=== PATIENT | female | born 1975 | race Caucasian/White ===

== ENCOUNTER 2025-05-02 10:35 | Emergency (ER) | payer MEDICARE, MEDICAID, SELFPAY ==
[2025-05-02 10:47] VITALS: BP 132/81; PULSE 103; RESP 18; TEMP 36.7; O2SAT 98
--- NOTE | 2025-05-02 11:04 | ED_ITS ---
HPI - Skin/Abscess/Foreign Bdy General Chief complaint: Skin/Abscess/Foreign Body Stated complaint: Rash Time Seen by Provider: 05/02/25 10:40 Source: patient Mode of arrival: ambulatory Limitations: no limitations History of Present Illness HPI narrative: Dianna is a 49-year-old female patient presenting to the clinic today with complaints red, raised, itchy rash to her arms and to her anterior thighs that started on Friday night. She states she took Trulicity 2 days prior to the rash starting. Trulicity is a new medication for her. Denies any other environmental changes. Denies any difficulty swallowing or trouble breathing. No tongue swelling. Has use Benadryl gel without relief. Related Data Home Medications ?Medication ?Instructions ?Recorded ?Confirmed ?Last Taken ?Type alendronate 70 mg tablet mg PO 05/02/25 Unknown Hist ory amlodipine 2.5 mg tablet mg 05/02/25 Unknown History buspirone 10 mg tablet mg 05/02/25 Unknown History cariprazine 1.5 mg capsule mg 05/02/25 Unknown Histor y (Vraylar) cyclobenzaprine 10 mg tablet mg 05/02/25 Unknown Hist ory divalproex 500 mg tablet,delayed mg PO 05/02/25 Unkno wn History release dulaglutide 0.75 mg/0.5 mL mg subcut 05/02/25 Unknown History subcutaneous pen injector (Trulicity) glipizide 10 mg tablet, extended mg PO 05/02/25 Unkno wn History release 24 hr levothyroxine 50 mcg tablet mcg 05/02/25 Unknown Hist ory metformin 500 mg tablet,extended mg PO 05/02/25 Unkno wn History release 24 hr metoprolol succinate 25 mg mg PO 05/02/25 Unknown His tory tablet,extended release 24 hr pantoprazole 40 mg tablet,delayed mg PO 05/02/25 Unkn own History release rosuvastatin 10 mg tablet mg 05/02/25 Unknown History sertraline 50 mg tablet mg 05/02/25 Unknown History trazodone 50 mg tablet mg 05/02/25 Unknown History Allergies Allergy/AdvReac Type Severity Reaction Status Date / Time Sulfa (Sulfonamide Allergy Unknown Verified 05/02/25 10:48 Antibiotics) Review of Systems Review of Systems: Pertinent positives per HPI. Patient denies any fever, chills,headache, visual changes, dizziness, cough, runny nose, sore throat, shortness of breath, chest pain, palpitations, nausea, vomiting, diarrhea, constipation, abdominal pain, or any urinary issues. PMFSH Comments At the time of my signature, I reviewed and agree with the nursing past medical, surgical, social, and family history. There is no relevant family history pertinent to the patient complaint. Exam Narrative: General: Well-developed, well nourished, in no apparent distress Head: Normocephalic, atraumatic. Cardio: Regular rate and rhythm, s1 and s2 normal, no murmur appreciated. Resp: Clear to auscultation bilaterally, no rhonchi, rales, wheezing or rubs. Integumentary: [place], warm, and dry, red, raised, itchy macular rash to bilateral arms and bilateral anterior thighs Course Course Level of Care: Express Care Visit Vital Signs Vital signs: Vital Signs Temperature 36.7 C 05/02/25 10:47 Pulse Rate 103 H 05/02/25 10:47 Respiratory Rate 18 05/02/25 10:47 Blood Pressure 132/81 05/02/25 10:47 Pulse Oximetry 98 05/02/25 10:47 Oxygen Delivery Room Air 05/02/25 10:47 Temperature 36.7 C 05/02/25 10:47 Pulse Rate 103 H 05/02/25 10:47 Respiratory Rate 18 05/02/25 10:47 Blood Pressure 132/81 05/02/25 10:47 Pulse Oximetry 98 05/02/25 10:47 Oxygen Delivery Room Air 05/02/25 10:47 [facility] MDM Narrative Medical decision making narrative: At the time of visit patient is resting comfortably on the exam table. Patient appears to be nontoxic. Complaints red, raised, itchy rash to her arms and to her anterior thighs that started on Friday night. She states she took Trulicity 2 days prior to the rash starting. Trulicity is a new medication for her. Denies any other environmental changes. Denies any difficulty swallowing or trouble breathing. No tongue swelling. Has use Benadryl gel without relief. On exam patient has red, raised, itchy macular rash to bilateral arms and bilateral anterior thighs Plan: I suspect patient has pruritic rash on her arms and thighs that look like a dermatitis. Prescription for 10 day taper dose of prednisone was sent to pharmacy. Recommend discussing the Trulicity with her doctor to see if this is a medication they want to continue. Supportive measures were discussed with the patient and they voiced understanding discharge instructions and agrees to treatment plan. Return precautions reviewed Differential Diagnosis Differential Diagnosis: Differential diagnostic considerations for skin/abscess/foreign body issues include abscess of skin or subcutaneous tissue, viral exanthem, dermatophytosis, urticaria, herpes zoster, allergic reaction to drug, cellulitis, eczema, insect bites, impetigo, contact dermatitis, vasculitis. 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 Take prednisone as directed Avoid hot showers Avoid scratching as this can cause a secondary infection May take benadryl 25-50mg every 6 hours as needed for itching. Follow up with your PCP in 3-5 days if symptoms persist or sooner if they worsen Go to the Emergency Room if symptoms worsen- fever, rash spreading with treatment, shortness of breath, tongue swelling, drooling, or chest pain Patient Language: Qatari Prescriptions: New prednisone 10 mg tablet 10 mg PO DAILY Qty: 30 0RF Rx Instructions: 60mg po daily on day 1, 40mg po daily on days 2-4, 30mg po daily on days 5-6, 20mg po daily on days 7-8, 10mg po daily on days 9-10 No Action cyclobenzaprine 10 mg tablet trazodone 50 mg tablet glipizide 10 mg tablet extended release 24hr PO alendronate 70 mg tablet PO amlodipine 2.5 mg tablet divalproex 500 mg tablet,delayed release (DR/EC) PO levothyroxine 50 mcg tablet pantoprazole 40 mg tablet,delayed release (DR/EC) PO buspirone 10 mg tablet metoprolol succinate 25 mg tablet extended release 24 hr PO metformin 500 mg tablet extended release 24 hr PO sertraline 50 mg tablet rosuvastatin 10 mg tablet Trulicity 0.75 mg/0.5 mL pen injector SUBCUT Vraylar 1.5 mg capsule Follow-up/Referrals: David,Bruce Davis MD [Primary Care Provider] Time of Disposition: 11:00 Quality NIHSS Nursing Documentation ED NIHSS nursing documentation: reviewed/agree
--- OUTSIDE RECORDS SUMMARY | 2025-05-02 12:16 | XMS_ITS | Clinical Summary ---
Author Organization [facility] [place] Address [address] [place] [address] Care Team Providers Care Civil Division Deputy Sheriff Name Role Phone Bruce Hernandez MD Primary Care Provider [phone] Bruce Hernandez MD Unavailable [phone] Allergies Active Allergy Reactions Criticality Noted Date Comments Adhesive Tape-Silicones Bacitracin Gramicidin D Latex Rash Reaction: Rash, Latex Blisters High 07/20/2024 Matador Swelling Medium 07/20/2024 Neomycin Fkhfmpoz-Edncbxtbia-Slhyabfs n Blisters High 11/10/2024 bacitracin / neomycin / polymyxin B Polymyxin B Pramoxine Sulfa Hives Medium 07/20/[address] (PROTONIX) 40 mg EC tablet Take 1 tablet (40 mg total) by mouth daily Active cetirizine (ZyrTEC) 10 mg tablet Take 1 tablet (10 mg total) by mouth daily Active naproxen (NAPROSYN) 500 mg tablet Take 1 tablet (500 mg total) by mouth daily Active polyethylene glycol (MIRALAX) 17 gram packetIndicati ons:constipati on Take 1 packet (17 g total) by mouth daily Active amLODIPine (NORVASC) 2.5 mg tablet Take 1 tablet (2.5 mg total) by mouth daily 90 tablet 3 5 07/21/19 26 Active rosuvastatin (CRESTOR) 10 mg tablet Take 1 tablet (10 mg total) by mouth daily 90 tablet 3 5 Active metoprolol XL (TOPROL-XL) 25 mg extended release tablet Take 1.5 tablets (37.5 mg total) by mouth daily 1 1/2 tablet by mouth every night at bedtime 135 tablet 3 5 Active Additional Information Patient taking differently:37.5 mg oral Daily,1/2 tablet by mouth every night at bedtime, Reported on 04/25/2025 cyclobenzaprin e (FLEXERIL) 10 mg tablet Take 1 tablet (10 mg total) by mouth 3 (three) times a day as needed for muscle spasms Active divalproex DR (DEPAKOTE) 500 mg EC tablet Take 1 tablet (500 mg total) by mouth nightly Active alendronate (Fosamax) 70 mg tablet Take 1 tablet (70 mg total) by mouth every 7 days Take in the morning with a full glass of water, on an empty stomach, and do not take anything else by mouth or lie down for the next 30 min. Active al & mag hydroxide simethicone-di phenhydramine- lidocaine-nyst atin (MAGIC MOUTHWASH) suspension 1-1-1-1 Swish and swallow every 4 (four) hours as needed Active niacinamide 500 mg tablet Take 1 tablet (500 mg total) by mouth 3 (three) times a day with meals Active ketoconazole (NIZORAL) 2 % cream Apply topically daily 30 g 3 5 Active multivitamin-i priti-folic acid (Centrum Women) 18-400 mg-mcg tablet Take 1 tablet by mouth daily Active sertraline (ZOLOFT) 50 mg tablet Take 1 tablet (50 mg total) by mouth daily 5 Active traZODone (DESYREL) 50 mg tablet Take 2 tablets (100 mg total) by mouth nightly 5 Active naproxen (NAPROSYN) 500 mg tablet Take 1 tablet (500 mg total) by mouth 2 (two) times a day with meals 30 tablet 5 Active traMADoL (ULTRAM) 50 mg tabletIndicati ons:Wound infection,Lace ration of left hand, subsequent encounter Take 1 tablet (50 mg total) by mouth every 6 (six) hours P.r.n. pain not relieved by iflz-ojv-owgfhuj pain medication. Take with food. Collaborating physician Ghulam Carney MD 15 tablet Active Additional Information Patient not taking.Reported on 04/25/2025 busPIRone (BUSPAR) 10 mg tablet Active Vraylar 3 mg capsule capsule Active glipiZIDE XL (GLUCOTROL XL) 10 mg 24 hr tabletIndicati ons:type 2 diabetes mellitus Take 2 tablets (20 mg total) by mouth daily 180 tablet 3 5 03/28/20 Active metFORMIN XR (GLUCOPHAGE XR) 500 mg 24 hr tablet Take 2 tablets (1,000 mg total) by mouth 2 (two) times a day after breakfast and dinner 360 tablet 3 5 03/29/20 Active empagliflozin (Jardiance) 25 mg tablet Take 1 tablet (25 mg total) by mouth daily 90 tablet 3 5 03/29/20 Active blood-glucose sensor (Dexcom G7 Sensor) device 1 device continuously change every 10 days E11.65 9 each 3 Active Additional Information Patient not taking.Reported on 04/25/2025 levothyroxine (SYNTHROID) 50 mcg tablet Take 1 tablet (50 mcg total) by mouth pediatric oncologist before breakfast 90 tablet 3 Active dulaglutide (TRULICITY) 0.75 mg/0.5 mL pen injector Inject 0.5 mL (0.75 mg total) under the skin every 7 days 2 mL 6 Active Active Problems Problem Noted Date Diagnosed Date Bipolar 1 disorder, depressed 01/04/2025 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 01/04/2025 White without pressure finding of peripheral ret asha 01/04/2025 Wound infection 12/19/2024 Laceration of left hand, subsequent encounter 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 12/13/2024 Pemphigoid 11/10/2024 Cyst of pancreas 10/26/2024 Fibromyalgia 10/26/2024 Raynaud's disease 10/26/2024 Bipolar disorder 08/26/2024 Generalized anxiety disorder 08/26/2024 Insomnia 08/26/2024 Other specified hypothyroidism 07/20/2024 Type 2 diabetes mellitus, wi thout long-term current use of insulin 07/20/2024 Primary hypertension 07/20/2024 Other hyperlipidemia 07/20/2024 Encounters Date Type Department Care Team Description 04/29/2025 10:27 AM HOME ENERGY CONSULTANT - 04/29/2025 11:59 PM HOME ENERGY CONSULTANT Hospital Encounter [facility] Nutrition and Diabetic Education [address] [facility] [id number] [place] [address] Angela Delgado, RN Arrived Discharge Disposition: Discharge to home or self care 04/28/2025 8:15 AM HOME ENERGY CONSULTANT Therapy [facility] Occupational Therapy [address] [place] [id number] Prerna Kennedy, OT Unspecified injury of left wrist, hand and finger(s), sequela (Primary Dx) 04/25/2025 10:30 AM HOME ENERGY CONSULTANT Office Visit [facility] at [address] [phone] Adrianna Hedrick, DO Type 2 diabetes mellitus with hyperglycemia, without long-term current use of insulin (HCC) (Primary Dx); Acquired hypothyroidism 04/19/2025 8:00 AM HOME ENERGY CONSULTANT Therapy [facility] [address] [place] [phone] Prerna Kennedy, OT Unspecified injury of left wrist, hand and finger(s), sequela 04/19/2025 Plan of Care Documentation [facility] Occupational [facility] [address] [place] [id number] 03/25/2025 11:57 AM HOME ENERGY CONSULTANT - 03/25/2025 11:59 PM HOME ENERGY CONSULTANT Hospital Encounter [facility] [address] [place] [address] Other dorsalgia; Other chronic pain Discharge Disposition: Discharge to home or self care 03/15/2025 Results Follow-Up [address] [address] Gia Narvaez, DO Diagnostic Mammogram Right W Manjinder 03/11/2025 9:30 AM CDT Ancillary Procedure [facility] [address] [place] [address] Breast asymmetry 03/11/2025 9:00 AM CDT Ancillary Procedure [facility] [address] [place] [address] Breast asymmetry from Last 3 Months Surgical History Surgery Date Site/Laterality Comments BREAST BIOPSY PORTACATH PLACEMENT CHOLECYSTECTOMY TYMPANOSTOMY TUBE PLACEMENT WISDOM TOOTH EXTRACTION Medical History Medical History Date Comments Diabetes mellitus Diabetes Hx Other Medical Headache, migra ine Hx Other Medical bipolar disorde r Hyperlipidemia Hyperlipidemia Hypertension Hypertension Primary fibromyalgia syndrome fi bromyalgia Type 2 diabetes mellitus Fibromyalgia Hypothyroid h Anxiety Bipolar disorder Heart murmur Tachycardia GERD (gastroesophageal reflux disease) Irritable bowel syndrome Stroke (HCC) TIA left arm wea kness Depression Raynaud disease Family History Medical History Relation Name Comments Coronary artery disease Maternal Grandmother Coronary artery disease; Diabetes type I Maternal Grandmother Diab etes -Type I; Stroke Maternal Grandmother Stroke; Uterine cancer Maternal Grandmother Breast cancer Maternal Great-Grandmother Breast cancer Mother Diabetes type II Mother Diabetes -T ype II; Ovarian cancer Mother Uterine cancer Mother Uterine cancer Mother's Sister X 3 Relation Name Status Comments Father Maternal Grandmother Maternal Great-Grandmother Mother Mother's Sister Social History Tobacco Use Types Packs/Day Years Used Date Smoking Tobacco: Former Cigarettes 0.5 1 1 - 1995 Tobacco Cessation:Counseling Given: Not Answered Alcohol Use Standard Drinks/Week Comments No 0 (1 standard drink = 0.6 oz pur e alcohol) AUDIT-C Answer Date Recorded Q1: How often do you have a drink containing alc ohol? 2-4 times a month 11/16/2024 Q2: How many drinks containi ng alcohol do you have on a typical day when you are drinking? 3 or 4 11/16/2024 Q3: How often do you have si x or more drinks on one occasion? Never 11/16/2024 Personal Safety Answer Date Recorded Have you ever been in or are you currently in a harmful physical or emotional relationship or is someone making you feel afraid or unsafe? Denies 12/19/2024 Comments No Sex and Gender Information Value Date Recorded Sex Assigned at Not on file Legal Sex Female 1:03 AM HOME ENERGY CONSULTANT Gender Identity Not on file Sexual Orientation Not on file Obstetrics History Para Term AB IAB SAB Ectopic Multiple Livin g Live Births 1 1 0 1 0 0 0 0 Date Outcome GA Total Labor Labor/2nd/3rd Weight Sex Type Anes PTL Radha A1 A5 Name Clin 1995 34w 0d 3.062 kg (6 lb 12 oz) F Vaginal Last Filed Vital Signs Vital Sign Reading Time Taken Comments Blood Pressure 128/74 04/25/2025 10:26 AM HOME ENERGY CONSULTANT Pulse 96 04/25/2025 10:26 AM HOME ENERGY CONSULTANT Temperature 36.2 C (97.2 F) 12/19/2024 3:35 PM CDT Respiratory Rate 16 12/19/2024 8:38 PM CDT Oxygen Saturation 94% 12/19/2024 8:38 PM CDT Inhaled Oxygen Concentration - - Weight 80 kg (176 lb 4.8 oz) 04/25/2025 10:26 AM HOME ENERGY CONSULTANT Height 149.9 cm (4' 11) 04/25/2025 10:26 AM HOME ENERGY CONSULTANT Body Mass Index 35.61 04/25/2025 10:26 AM HOME ENERGY CONSULTANT Plan of Treatment Health Maintenance Due Date Last Done Comments Colon Cancer Screening-Colonoscopy 1974 Depression Screening 1974 Hepatitis C Screening 1974 DTaP/Tdap/Td Vaccine (1 - Tdap) 1985 Hepatitis B Screening 1992 Pneumococcal vaccine <65 (1 of 2 - PCV) 1993 Zoster Vaccine (1 of 2) 2024 Influenza Vaccine (#1) 2025 Foot Exam 07/20/2025 07/20/2024 Lipid Panel 07/20/2025 07/20/2024 Albumin Creatinine Ratio, Urine 07/21/2025 Breast Cancer Screening-Mammogram 08/26/2025 025 Cervical Cancer Screening 08/26/2025 08/26/2024, Regular Well Visit/Exam 18-64 08/26/2025 08/26/2024 Hemoglobin A1C 10/24/2025 04/25/2025, 01/10, 10/21/2024, Additional history exists eGFR 12/19/2025 12/19/2024, 01/26/2024 Dilated Eye Exam 09/08/2026 09/08/2024, 07/20/2024 Procedures Procedure Name Priority Date/Time Associated Diagnosis Comments POCT HEMOGLOBIN A1C Routine 04/25/2025 10:41 AM HOME ENERGY CONSULTANT Type 2 diabetes mellitus with hyperglycemia, without long-term current use of insulin (HCC) XR SPINE CERVICAL 2 OR 3 VIEWS Schedule Routine, Read Routine (OP Routine) 03/25/2025 12:11 PM HOME ENERGY CONSULTANT Other dorsalgia XR SPINE THORACIC 3 VIEWS Schedule Routine, Read Routine (OP Routine) 03/25/2025 12:11 PM HOME ENERGY CONSULTANT Other dorsalgia Other chronic pain US BREAST RIGHT LIMITED Schedule Routine, Read Routine (OP Routine) 03/11/2025 10:04 AM CDT Breast asymmetry DIAGNOSTIC MAMMOGRAM RIGHT W MANJINDER Schedule Routine, Read Routine (OP Routine) 03/11/2025 9:06 AM CDT Breast asymmetry EGFR STAT 12/19/2024 6:33 PM CDT DIABETIC EYE EXAM Routine 09/08/2024 HIGH RISK HPV DNA DETECTION WITH GENOTYPING Routine 08/26/2024 10:42 AM CDT Screening for malignant neoplasm of cervix SCREENING MAMMOGRAM BILATERAL W MANJINDER Schedule Routine, Read Routine (OP Routine) 08/26/2024 10:27 AM CDT Screening mammogram, encounter for ALBUMIN CREATININE RATIO, URINE Routine 07/21/2024 12:00 AM CDT Type 2 diabetes mellitus with hyperglycemia, without long-term current use of insulin (HCC) LIPID PANEL Routine 07/20/2024 11:07 AM CDT Type 2 diabetes mellitus with hyperglycemia, without long-term current use of insulin (HCC) from Last 3 Months or Most Recently Relevant to Health Maintenance Results * (ABNORMAL) POCT hemoglobin A1c (04/25/2025 10:41 AM HOME ENERGY CONSULTANT) Hemoglobin A1C, POC 8.5(A) 4.0 - 5.6 % Blood 04/25/2025 10:4 1 AM HOME ENERGY CONSULTANT Adrianna Hedrick DO POINT OF CARE TEST ORDERABL ES Edited Result - Final * XR Spine Thoracic 3 Vw (03/25/2025 12:11 PM HOME ENERGY CONSULTANT) Anatomical Region Laterality Modality Spine N/A Computed Radiogr aphy 03/25/2025 6:54 PM HOME ENERGY CONSULTANT Impressions 03/25/2025 6:54 PM HOME ENERGY CONSULTANT 1. Minimal C5-C6 degenerative disc disease with mild bilateral cervical facet osteoarthritis. 2. Thoracic scoliosis with mild multilevel thoracic degenerative disc disease. Electronically signed by: Javier Knapp M.D. Narrative 03/25/2025 6:54 PM HOME ENERGY CONSULTANT EXAMINATION: XR SPINE THORACIC 3 VIEWS, XR SPINE CERVICAL 2 OR 3 VIEWS HISTORY: M54.89, G89.29. Cervical and thoracic spondylosis. FINDINGS: 2 views cervical spine and 3 views thoracic spine submitted without comparison. Cervical spine: No acute fracture. No prevertebral soft tissue swelling. Mild anterolisthesis of C4-C6. Minimal C4-C6 degenerative disc disease. Mild bilateral cervical facet osteoarthritis. Thoracic spine: Levoscoliosis of the upper thoracic spine. Mild dextroscoliosis of the inferior thoracic spine and rotary levoscoliosis of the thoracolumbar junction. No acute fracture. Mild multilevel thoracic degenerative disc disease. Procedure Note Javier Knapp MD - 03/25/2025 EXAMINATION: XR SPINE THORACIC 3 VIEWS, XR SPINE CERVICAL 2 OR 3 VIEWS HISTORY: M54.89, G89.29. Cervical and thoracic spondylosis. FINDINGS: 2 views cervical spine and 3 views thoracic spine submitted without comparison. Cervical spine: No acute fracture. No prevertebral soft tissue swelling. Mild anterolisthesis of C4-C6. Minimal C4-C6 degenerative disc disease. Mild bilateral cervical facet osteoarthritis. Thoracic spine: Levoscoliosis of the upper thoracic spine. Mild dextroscoliosis of the inferior thoracic spine and rotary levoscoliosis of the thoracolumbar junction. No acute fracture. Mild multilevel thoracic degenerative disc disease. IMPRESSION: 1. Minimal C5-C6 degenerative disc disease with mild bilateral cervical facet osteoarthritis. 2. Thoracic scoliosis with mild multilevel thoracic degenerative disc disease. Electronically signed by: Javier Knapp M.D. us Bruce Hernandez MD IM XR PROCEDURES Final Resul t * XR Spine Cervical 2 or 3 Views (03/25/2025 12:11 PM HOME ENERGY CONSULTANT) Anatomical Region Laterality Modality Spine N/A Computed Radiogr aphy 03/25/2025 6:54 PM HOME ENERGY CONSULTANT Impressions 03/25/2025 6:54 PM HOME ENERGY CONSULTANT 1. Minimal C5-C6 degenerative disc disease with mild bilateral cervical facet osteoarthritis. 2. Thoracic scoliosis with mild multilevel thoracic degenerative disc disease. Electronically signed by: Javier Knapp M.D. Narrative 03/25/2025 6:54 PM HOME ENERGY CONSULTANT EXAMINATION: XR SPINE THORACIC 3 VIEWS, XR SPINE CERVICAL 2 OR 3 VIEWS HISTORY: M54.89, G89.29. Cervical and thoracic spondylosis. FINDINGS: 2 views cervical spine and 3 views thoracic spine submitted without comparison. Cervical spine: No acute fracture. No prevertebral soft tissue swelling. Mild anterolisthesis of C4-C6. Minimal C4-C6 degenerative disc disease. Mild bilateral cervical facet osteoarthritis. Thoracic spine: Levoscoliosis of the upper thoracic spine. Mild dextroscoliosis of the inferior thoracic spine and rotary levoscoliosis of the thoracolumbar junction. No acute fracture. Mild multilevel thoracic degenerative disc disease. Procedure Note Javier Knapp MD - 03/25/2025 EXAMINATION: XR SPINE THORACIC 3 VIEWS, XR SPINE CERVICAL 2 OR 3 VIEWS HISTORY: M54.89, G89.29. Cervical and thoracic spondylosis. FINDINGS: 2 views cervical spine and 3 views thoracic spine submitted without comparison. Cervical spine: No acute fracture. No prevertebral soft tissue swelling. Mild anterolisthesis of C4-C6. Minimal C4-C6 degenerative disc disease. Mild bilateral cervical facet osteoarthritis. Thoracic spine: Levoscoliosis of the upper thoracic spine. Mild dextroscoliosis of the inferior thoracic spine and rotary levoscoliosis of the thoracolumbar junction. No acute fracture. Mild multilevel thoracic degenerative disc disease. IMPRESSION: 1. Minimal C5-C6 degenerative disc disease with mild bilateral cervical facet osteoarthritis. 2. Thoracic scoliosis with mild multilevel thoracic degenerative disc disease. Electronically signed by: Javier Knapp M.D. Bruce Hernandez MD IMG XR PROCEDURES Final Resul t * US Breast Right Limited (03/11/2025 10:04 AM CDT) Anatomical Region Laterality Modality Breast Right Ultrasound 03/11/2025 10:5 6 AM CDT Impressions 03/11/2025 10:56 AM CDT Findings in the right breast at the 10 o'clock position are probably benign. OVERALL FINAL ASSESSMENT: BI-RADS Category 3: Probably Benign. RECOMMENDATION: The patient should return in 6 months time, at the time of her bilateral annual study for diagnostic imaging and follow-up right breast ultrasound. Electronically signed by: Bia Newman M.D. Narrative 03/11/2025 10:56 AM CDT EXAMINATION: RIGHT UNILATERAL DIGITAL DIAGNOSTIC MAMMOGRAM AND DIGITAL BREAST TOMOSYNTHESIS; RIGHT BREAST SONOGRAM HISTORY: Follow-up right breast focal asymmetry COMPARISON: 09/06/2024, 08/26/2024, 08/15/2023, 08/13/2022 TECHNIQUE: Full field digital mammographic views of the RIGHT breast were performed, including computer aided detection (CAD) and digital breast tomosynthesis (DBT). Directed ultrasound evaluation of the RIGHT breast was performed. BREAST PARENCHYMAL COMPOSITION: There are scattered areas of fibroglandular density. MAMMOGRAM FINDINGS: Again identified in the right breast near the biopsy marker clip is an area of focal asymmetry. This does not appear changed when compared with the previous study. There is no suspicious associated microcalcification. SONOGRAM FINDINGS: Targeted right breast ultrasound was performed in the region of interest. The biopsy marker clip is identifiable within area of hypoechogenicity adjacent to it. This is documented best on cine clip images. This is at the 10 o'clock position 4 to 5 cm from the nipple. The hypoechoic area measures approximately 11 mm x 7 mm x 5 mm. Within cine clip images are directly compared, there has not been significant interval change. This remains probably benign. Gia Narvaez DO IMG MAMMO PROCEDURES Fi nal Result * Diagnostic Mammogram Right W Manjinder (03/11/2025 9:06 AM CDT) Anatomical Region Laterality Modality Breast Right Mammography 03/11/2025 10:5 6 AM CDT Impressions 03/11/2025 10:56 AM CDT Findings in the right breast at the 10 o'clock position are probably benign. OVERALL FINAL ASSESSMENT: BI-RADS Category 3: Probably Benign. RECOMMENDATION: The patient should return in 6 months time, at the time of her bilateral annual study for diagnostic imaging and follow-up right breast ultrasound. Electronically signed by: Bia Newman M.D. Narrative 03/11/2025 10:56 AM CDT EXAMINATION: RIGHT UNILATERAL DIGITAL DIAGNOSTIC MAMMOGRAM AND DIGITAL BREAST TOMOSYNTHESIS; RIGHT BREAST SONOGRAM HISTORY: Follow-up right breast focal asymmetry COMPARISON: 09/06/2024, 08/26/2024, 08/15/2023, 08/13/2022 TECHNIQUE: Full field digital mammographic views of the RIGHT breast were performed, including computer aided detection (CAD) and digital breast tomosynthesis (DBT). Directed ultrasound evaluation of the RIGHT breast was performed. BREAST PARENCHYMAL COMPOSITION: There are scattered areas of fibroglandular density. MAMMOGRAM FINDINGS: Again identified in the right breast near the biopsy marker clip is an area of focal asymmetry. This does not appear changed when compared with the previous study. There is no suspicious associated microcalcification. SONOGRAM FINDINGS: Targeted right breast ultrasound was performed in the region of interest. The biopsy marker clip is identifiable within area of hypoechogenicity adjacent to it. This is documented best on cine clip images. This is at the 10 o'clock position 4 to 5 cm from the nipple. The hypoechoic area measures approximately 11 mm x 7 mm x 5 mm. Within cine clip images are directly compared, there has not been significant interval change. This remains probably benign. us Gia Narvaez DO IMG MAMMO PROCEDURES Fi nal Result * eGFR (12/19/2024 6:33 PM CDT) eGFR >90 >=60 mL/min/1. 73 m2 Comment: Interpretive Data Reference Interval Normal >/= 90 mL/min/1.73m2 Mildly decreased* 60 - 89 mL/min/1.73m2 Mildly to moderately decreased 45 - 59 mL/min/1.73m2 Moderately to severely decreased 30 - 44 mL/min/1.73m2 Severely decreased 15 - 29 mL/min/1.73m2 Kidney Failure < 15 mL/min/1.73m2 *Relative to young adult level Estimated glomerular filtration rate is determined by the 2020 CKD-EPI equation recommended by the National Kidney Foundation (A Unifying Approach to GFR Estimation: Recommendations of the NKF-ASK Task Force on Reassessing the Inclusion of Race in Diagnosing Kidney Disease, JASN 2020). The CKD-EPI equation should not be used for patients with unstable renal function and has not been validated in children and those over 70. Current interpretive data was last reviewed 2021. Blood 12/19/2024 6:33 PM CDT 12/19/2024 6:40 PM CDT Taye DUNN LAB BLOOD ORDERABLES Final R esult [facility] [address] [facility] Department [place] [address] * (ABNORMAL) Diabetic Eye Exam (09/08/2024) 09/08/2024 Historical Provider HEALTH MAINTENANCE Final Result * High Risk HPV DNA Detection with Genotyping (Molecular component) (08/26/2024 10:42 AM CDT) HPV HR 16 Not Detected Not Detected [facility] Comment:Testing performed by : [facility], [address] [place] [address] HPV HR 18 Not Detected Not Detected [facility] Comment:Testing performed by : [facility], [address] [facility], [place]., [address] HPV HR Non 16/18 Not Detected Not Detected [facility] Comment: Interpretive Data Nucleic acid amplification for detection of high-risk Human Papilloma virus (HPV) is performed by the Mendy Nick 6800 HPV test. This assay specifically detects HPV-16 and HPV-18 genotypes. The following HPV genotypes are detected as high-risk HPV: HPV-31, 33, 35, ,39, 45, 51, 52, 56, 58, 59, 66, and 68. This assay has been approved by the [place] Food and Drug Administration for detection of HPV in cervical specimens collected by a physician using an endocervical brush/spatula or cervical broom and placed in the ThinPrep Pap Test PreservCyt collection containers. The performance characteristics of this test have been verified by the [facility] Molecular Infectious Disease laboratory. Correlate with separately reported cytology results, as applicable. Interpretive data last revised 22 Testing performed by: [facility], [address] [place]., [address] Endocervical 08/26/2024 10:4 2 AM CDT 08/27/2024 12:36 PM CDT [facility] 08/27/2024 10:58 PM CDT Clinical history and diagnosis->Liquid-based PAP test with high risk HPV test- Z12.4 Number of vials->1 Testing type->Screening Last menstrual period (date if known)->N/A Menstrual status->Postmenopausal Gia Narvaez DO LAB BODY FLUIDS AND STO OLS ORDERABLES Final Result [facility] [address] Department [place] [address] [facility] * (ABNORMAL) Screening Mammogram Bilateral W Manjinder (08/26/2024 10:27 AM CDT) Anatomical Region Laterality Modality Breast Bilateral Mammography 08/30/2024 3:41 PM CDT Addenda Addendum by Whit Cruz MD on 08/30/2024 3:41 PM CDT The patient's prior examinations performed on 08/15/2023, 08/13/2022, 10/02/2020, 03/30/2020 and 09/21/2019 have become available for comparison. The focal asymmetry near the biopsy clip in the upper outer right breast posteriorly was present previously but appears more prominent. The asymmetry in the central right breast on the MLO view, possibly located laterally was not seen previously. Additional evaluation of the right breast is still recommended. Electronically signed by: Whit Cruz M.D. Impressions 08/26/2024 1:12 PM CDT Indeterminate bilateral breast asymmetries. Further evaluation with bilateral diagnostic mammography and possible diagnostic breast ultrasound is recommended. The patient has been or will be contacted. OVERALL BI-RADS FINAL ASSESSMENT: 0 - Incomplete: Needs Additional Imaging Evaluation RECOMMENDATIONS: Recommend bilateral diagnostic mammogram with possible ultrasound. Narrative 08/26/2024 1:12 PM CDT EXAMINATION: Screening Mammogram Bilateral W Manjinder: 08/26/2024 COMPARISON: TECHNIQUE: Mammography was performed with 2D and digital breast tomosynthesis (DBT) images. CAD was utilized. BREAST PARENCHYMAL COMPOSITION: There are scattered areas of fibroglandular density. FINDINGS: A metallic device overlies the left pectoralis muscle. There is a postbiopsy clip in the upper outer right breast posteriorly. Adjacent to the clip is a focal asymmetry with possible associated distortion. There is also an asymmetry in the central right breast seen on the MLO view, middle depth which may be in the lateral breast. No other suspicious masses, calcifications or other findings are seen in either breast. Gia Narvaez DO IMG MAMMO PROCEDURES Ed ited Result - Final * Albumin Creatinine Ratio, Urine (07/21/2024 12:00 AM CDT) Albumin Ur <12.0 mg/L Comment: Interpretive Data No reference range established. Current interpretive data was last revised 2018. Creatinine Ur 64.2 mg/dL [facility] Comment: Interpretive Data No reference range established. Current interpretive data was last revised 2018. Albumin Creatinine Ratio, Ur <19 1 - 29 mg/g [facility] Urine 07/21/2024 07/21/2024 12: 34 PM CDT Adrianna Hedrick DO LAB URINE ORDERABLES Final Result [facility] [id number] [facility] Department [place] [address] * (ABNORMAL) Lipid panel (07/20/2024 11:07 AM CDT) Cholesterol 147 30 - 199 mg/dL Comment: Interpretive Data Ages < or = 19 years Acceptable: <170 mg/dL Borderline high: 170-199 mg/dL High: >or= 200 mg/dL Ages > or = 20 years Desirable: <200 mg/dL Borderline high: 200-239 mg/dL High: >or= 240 mg/dL Literature References: 1. Expert Panel on Integrated Guidelines for Cardiovascular Health and Risk Reduction in Children and Adolescents. Pediatrics 2011;128:S213 2. NCEP Expert Panel. Circulation 2004;110:227 Current Interpretive Data was last revised on 2017. Triglycerides 181(H) <=149 mg/dL [facility] Comment: Interpretive Data Ages < or = 9 years Acceptable: <75 mg/dL Borderline high: 75-99 mg/dL High: >or= 100 mg/dL Ages 10 to 20 years Acceptable: <90 mg/dL Borderline high: 90-129 mg/dL High: >or= 130 mg/dL Ages > or = 20 years Desirable: <150 mg/dL Borderline high: 150-199 mg/dL High: 200-499 mg/dL Very high: >or= 499 mg/dL Literature References: 1. Expert Panel on Integrated Guidelines for Cardiovascular Health and Risk Reduction in Children and Adolescents. Pediatrics 2011;128:S213 2. NCEP Expert Panel. Circulation 2004;110:227 Current Interpretive Data was last revised on 2017. HDL 44 >=40 mg/dL [facility] Comment: Interpretive Data Ages < or = 19 years Acceptable: >45 mg/dL Borderline low: 40-45 mg/dL Low: <40 mg/dL Ages > or = 20 years Desirable: >or= 60 mg/dL Low: <40 mg/dL Literature References: 1. Expert Panel on Integrated Guidelines for Cardiovascular Health and Risk Reduction in Children and Adolescents. Pediatrics 2011;128:S213 2. NCEP Expert Panel. Circulation 2004;110:227 Current Interpretive Data was last revised on 2017. LDL, calculated 72 <=129 mg/dL [facility] Comment: Interpretive Data Ages < or = 19 years Acceptable: <110 mg/dL Borderline high: 110-129 mg/dL High: >or= 130 mg/dL Ages > or = 20 years Optimal: <100 mg/dL Near optimal: 100-129 mg/dL Borderline high: 130-159 mg/dL High: >160 mg/dL Calculated using the Marlo LDL-C estimating equation. This equation was implemented on 2023. Prior to this date LDL-C was estimated using the Friedewald equation. Literature References: 1. Expert Panel on Integrated Guidelines for Cardiovascular Health and Risk Reduction in Children and Adolescents. Pediatrics 2011;128:S213 2. NCEP Expert Panel. Circulation 2004;110:227 3. Marlo Tolentino et al. GUIDO Cardiol. 2020 September 09;5(5):540-548. doi: [email or web address] Current Interpretive Data was last revised on 2023. Non-HDL Cholesterol 103 mg/dL [facility] Comment: Interpretive Data Ages < or = 19 years Acceptable: <120 mg/dL Borderline high: 120-144 mg/dL High: >145 mg/dL Ages > or = 20 years When triglycerides are >200 mg/dL, Non-HDL cholesterol is a secondary target of therapy with treatment goals that are 30 mg/dL greater than the LDL cholesterol target. Literature References: 1. Expert Panel on Integrated Guidelines for Cardiovascular Health and Risk Reduction in Children and Adolescents. Pediatrics 2011;128:S213 2. NCEP Expert Panel. Circulation 2004;110:227 Current Interpretive Data was last revised on 2017. Chol/HDL ratio 3 [facility] Blood 07/20/2024 11:0 7 AM CDT 07/20/2024 9:16 PM CDT Narrative [facility] - 07/20/2024 10:15 PM CDT These lab test should be done fasting. This means do not eat or drink for at least 12 hours prior to getting your blood drawn. 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
--- OUTSIDE RECORDS SUMMARY | 2025-05-02 12:23 | XMS_ITS | Continuity of Care Document ---
Author Organization Jlu[facility]COSTA [address] IM Address [address] [facility] [address] [place] [address] Assessment Encounter Date Assessment Date Assessment LastModified by Organization Details LastModified Time 03/24/2025 03/24/2025 Decrease metoprolol to 1/2 tablet po HS due to decreased BP. Pt sees an eye doctor. Not available 03/25/2025 13:46:57 Plan of Treatment Reminders Order Date Submit Date Provider Last Modified By Organization Details Last Modified Time Details Appointments None recorded. Lab None recorded. Referral None recorded. Procedures None recorded. Surgeries None recorded. Imaging XR, thoracic spine, 3 view 2024 025 ROHIT Schmitz Scheduling, [address] [place], [address], 19:57:53 XR, cervical spine, 2 or 3 view 2024 025 [email or web address] Jluis Schmitz Scheduling, [address] [facility] [place], [address], 11:54:30 Medication Orders alendrona te 70 mg tablet 2024 025 [facility] #[id number], [address], [place], [place], [id number], 12:23:17 rosuvasta tin 10 mg tablet 2024 025 [facility][id number], [address], [place], [place], [id number], 12:26:14 metoprolo l succinate ER 25 mg tablet,ex tended release 24 hr 2024 025 [facility] #[id number], [address], [place], [place], [phone], 12:23:17 Patient TargetsNo targets recorded. Patient Instructions Encounter Date Encounter Id Patient Instructions Last Modified By Organization Details Last Modified Time 03/24/2025 [id number] physical therapy* ATHENAFAX Not availab le 04/01/2025 11:55:56 mammogram: about this test [email or web address] Not available 03/24/2025 12:29:05 A healthy lifestyle: care instructions [email or web address] Not available 03/24/2025 12:20:16 high blood pressure: care instructions [email or web address] Not available 03/24/2025 12:23:11 learning about high blood pressure [email or web address] Not available 03/24/2025 12:23:11 Reason for Referral None Reported. Results Created Date Observation Date Name Description Value Unit Range Abnormal Flag Note LastModifiedBy Organization Detail LastModifiedTime 03/11/2003/11/2025 US, breas t, unila teral No observ ation record ed. [facility] [address] [place] [address] Dr Jerrica Wray, [address], [place], [address], 03/11/2025 12:58:04 03/11/2003/11/2025 MAMMO , diagn ostic , unila teral No observ ation record ed. [facility] [address] [facility] [address] Jerrica Wray, [address], [place], [address], 03/11/2025 12:58:46 03/25/2003/25/2025 XR, thora cic spine , 3 view No observ ation record ed. [address] [place], [address], 04/04/2025 11:22:45 03/25/2003/25/2025 XR, thora cic spine , 3 view No observ ation record ed. [address] [place], [address], 04/04/2025 11:22:46 Result Notes None recorded. 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 Procedures Surgical History Date Name Laterality Status Provider Name and Address Organization Details Recorded Time 12/13/19 25 Other completed BETY Sung SIFrancesco 03/24/2025 11:34:45 11/23/19 25 removal of device completed BETY Sung 03/24/2025 11:33:52 09/10/19 19 core needle biopsy of breast completed BETY Sung 08/13/2024 11:42:42 Cholecystectomy completed BETY Sung 08/13/2024 11:40:43 cryosurgery of lesion of cervix completed BETY Sung 08/13/2024 11:41:08 extraction of wisdom tooth completed BETY Sung 08/13/2024 11:41:20 cataract surgery completed BETY Sung 08/13/2024 11:41:31 colonoscopy completed BETY Sung 08/13/2024 11:41:54 implantation of venous access port completed BETY Sung 08/13/2024 11:42:56 Imaging Results None recorded. Procedure Notes None recorded. Medical Equipment None Reported. Allergies Allergen ID Allergen Name Allergen Category Reaction Reaction Severity Criticality Documentation Date Start Date Code Code System Note Provider Name and Address Organization Details Recorded Time 301364 Substance with sulfonami de structure and antibacte rial mechanism of action (substanc e) medicatio n Not available Not available Not available 09/21/2024 38276 8003 SNOMED BETY Sung, [facility] 11:41:57 124766 latex environme nt,medica tion Not available Not available Not available 09/21/2024 19620 91 RxNorm BETY Sung, [facility] 11:42:02 013007 lithium Not available Not available Not available Not available 09/21/2024 6448 RxNorm BETY Sung, [facility] 11:42:06 389411 bacitraci n / neomycin / polymyxin B medicatio n Not available Not available Not available 09/21/2024 87516 9 RxNorm cream or ointm ent BETY Sung, [facility] 11:42:45 447885 polymyxin B medicatio n Not available Not available Not available 03/24/20252024 8536 RxNorm Not Available [employer] - prod 11:20:21 260792 neomycin sulfate medicatio n Not available Not available Not available 03/24/20252024 7300 RxNorm Not Available [employer] - prod 11:20:21 828198 bacitraci n zinc medicatio n Not available Not available Not available 03/24/20252024 90072 RxNorm Not Available [employer] [facility] - [facility] 11:20:21 371949 bacitraci n medicatio n Not available Not available Not available 03/24/20252024 1291 RxNorm Not Available [employer] - [facility] 5 11:20:21 328246 gramicidi n medicatio n Not available Not available Not available 03/24/2025 5011 RxNorm Not Available [employer] - [employer] - prod 5 11:20:24 254647 neomycin medicatio n Not available Not available Not available 03/24/2025 7299 RxNorm Not Available [employer] - [employer] - prod 5 11:20:24 341553 bacitraci n / neomycin / polymyxin B medicatio n Not available Not available [facility] 03/24/20252024 68227 9 RxNorm bacit racin / neomy diana / polym yxin B unrec ogniz ed react ion (text : Theodore ers, code: [id number]) (from [facility]) Not Available [facility] [employer] - prod 5 11:20:24 832236 pramoxine medicatio n Not available Not available Not available 03/24/2025 93221 RxNorm Not Available [employer] - External [facility] - [facility] 5 11:20:24 945672 sulfanila mide medicatio n Not available Not available Not available 03/24/2025 24179 RxNorm Not Available [facility] External Data Service - [facility] 5 11:20:24 Medications Name Sig Start Date Stop Date Status Note LastModified by Organization Details LastModified Time cyclobenz aprine 10 mg tablet TAKE 1 TABLET BY MOUTH TWICE DAILY NEEDED active Not Available Not Available No t Available buspirone 5 mg tablet TAKE 1 TABLET BY MOUTH 2 TIMES A DAY active Not Available Not Available No t Available trazodone 50 mg tablet TAKE 2 TO 3 TABLETS BY MOUTH AT BEDTIME NEEDED active Not Available Not Available No t Available cetirizin e 10 mg tablet Take 1 tablet every day by oral route. active Not Available Not Available No t Available alendrona te 70 mg tablet TAKE 1 TABLET BY MOUTH EVERY WEEK active Not Available Not Available No t Available amlodipin e 2.5 mg tablet Take 1 tablet every day by oral route in the morning. active Not Available Not Available No t Available divalproe x 500 mg tablet,de layed release TAKE 1 TABLET BY MOUTH DAILY active Not Available Not Available No t Available Depakote ER 500 mg tablet,ex tended release Take 1 tablet every day by oral route at bedtime. 03/24 completed Not Available Not Available Not Available levothyro xine 50 mcg tablet TAKE 1 TABLET BY MOUTH BAND MANAGER BEFORE BREAKFAS T active Not Available Not Available No t Available pantopraz ole 40 mg tablet,de layed release Take 1 tablet every day by oral route for 90 days. 2024 active Not Available Not Available Not Avai lable niacinami de 500 mg tablet Take by oral route. active take 3xdaily - OTC Not Available Not Available Not Available nystatin 100,000 unit/gram topical cream 03/24 completed Not Available Not Available Not Available buspirone 10 mg tablet TAKE 1 TABLET BY MOUTH THREE TIMES DAILY active Not Available Not Available No t Available metoprolo l succinate ER 25 mg tablet,ex tended release 24 hr Take 0.5 tablets every day by oral route in the evening for 90 days. 2024 active Not Available Not Available Not Avai lable ketoconaz ole 2 % topical cream APPLY TOPICALL Y TO THE AFFECTED AREA DAILY active Not Available Not Available No t Available metformin ER 500 mg tablet,ex tended release 24 hr TAKE 2 TABLETS BY MOUTH 2 TIMES A DAY active Not Available Not Available No t Available sertralin e 50 mg tablet TAKE 1 TABLET BY MOUTH DAILY active Not Available Not Available No t Available glipizide 5 mg tablet Take 1 tablet twice a day by oral route. active Dr Edmondson do increase to 20mg daily 01/21/25 Not Available Not Available Not Available naproxen 500 mg tablet Take 1 tablet twice a day by oral route. 03/24 completed Not Available Not Available Not Available rosuvasta tin 10 mg tablet TAKE 1 TABLET BY MOUTH EVERY DAY active Not Available Not Available No t Available polyethyl reynold glycol 3350 active Not Available Not Available Not Available Lantus Solostar U-100 Insulin 100 unit/mL (3 mL) subcutane ous pen 03/24 completed Not Available Not Available Not Available Jardiance 25 mg tablet Take 1 tablet every day by oral route in the morning. active Dr Edmondson do Not Available Not Available Not Available Trulicity 0.75 mg/0.5 mL subcutane ous pen injector Inject by subcutan eous route. active 04/25/25 Endo Not Available Not Available Not Available Vraylar 1.5 mg capsule 03/24 completed on 3 mg Not Available Not Available Not Available Vraylar 3 mg capsule TAKE 1 CAPSULE BY MOUTH DAILY WITH A FULL MEAL active Not Available Not Available No t Available Dexcom G7 Blower Feeder Dyed Raw Stock active Dr Edmondson do Not Available Not Available Not Available Dexcom G7 Sensor active Dr Edmondson do Not Available Not Available Not Available Vitals Date Recorded Body height Body mass index (BMI) Body weight Respiratory rate Body temperature Oxygen saturation Heart rate Systolic And Diastolic Provider Name and Address Organization Details Last Updated DateTime 149.86 cm 35.4 kg/m2 91282.0 6 g 16 /min 97.8 [degF] 97 % 79 /min 116/76 mm[Hg] Dianna Patel MA [facility] 11:38:29 Social History Question Answer Notes LastModified by Organizat ion Details LastModified Time Tobacco Smoking Status Never Smoker Dianna Patel MA null, [place] [facility] 03/24/2025 11:31:59 Do You Have An Advance Directive? No Information not available 03/24/2025 Are You Blind Or Do You Have Difficulty Seeing? Yes Readers Information not available 03/24/2025 What Is Your Level Of Caffeine Consumption? Heavy Coffee, Few Sodas Information not available 03/24/2025 In The 14 Days Before Symptom Onset, Have You Had Close Contact With A Laboratory-confir med COVID-19 While That Case Was Ill? No Information not available 03/24/2025 In The 14 Days Before Symptom Onset, Have You Had Close Contact With A Person Who Is Under Investigation For COVID-19 While That Person Was Ill? No Information not available 03/24/2025 Have You Been To An Area Known To Be High Risk For COVID-19? No Information not available 03/24/2025 Are You Deaf Or Do You Have Serious Difficulty Hearing? No Information not available 03/24/2025 What Type Of Diet Are You Following? REGULAR Low Sodium And Carb Information not available 03/24/2025 What Was The Date Of Your Most Recent Tobacco Screening? 03/24/2025 Information not available 03/24/2025 How Many Children Do You Have? 1 Information not available 03/24/2025 What Is Your Relationship Status? Information not available 03/24/2025 Do You Use Your Seat Belt Or Car Seat Routinely? Yes Information not available 03/24/2025 Do You Have Smoke And Carbon Monoxide Detectors In Your Home? Yes Information not available 03/24/2025 Are You Passively Exposed To Smoke? No Information no t available 03/24/2025 Do You Use Sunscreen Routinely? No Information not available 03/24/2025 Has Tobacco Cessation Counseling Been Provided? No Information not available 03/24/2025 Sex: Female Functional Status Question Answer Note LastModified by Organizat ion Details LastModified Time Do you use any illicit or recreational drugs? No Information not available 03/24/2025 Do you or have you ever used any other forms of tobacco or nicotine? No Information not available 03/24/2025 What is your level of alcohol consumption? Occasional Information not available 03/24/2025 Are you currently employed? No disability Information not available 03/24/2025 Are you able to care for yourself independently? Yes Information not available 03/24/2025 Mental Status Question Answer Note LastModified by Organization D etails LastModified Time Do you feel stressed (tense, restless, nervous, or anxious, or unable to sleep at night)? [id number] Information not available 03/24/2025 Family History Relationship Description Onset Age of this Age Resolved Age Notes LastModified by Organization Details LastModified Time Father Hypertensive disorder [email or web address] Not available 2024 11:43:24 Father Anxiety klortsma Not available 08/13/2024 11:43:34 Father Malignant neoplasm of prostate klortsma Not available 2024 11:49:46 Mother Hypertensive disorder klortsma Not available 2024 11:43:52 Mother Mitral valve disorder klortsma Not available 2024 11:44:18 Mother Heart failure klortsma Not available 2024 11:44:31 Mother History of macular degeneration klortsma Not available 08/2024 11:44:47 Mother Malignant neoplasm of breast klortsma Not available 2024 11:44:59 Mother Malignant neoplasm of ovary klortsma Not available 2024 11:45:14 Mother Malignant neoplasm of uterus klortsma Not available 2024 11:45:31 Mother Parkinson's disease klortsma Not available 2024 11:56:33 Mother Heart disease klortsma Not available 2024 11:54:58 Mother Glaucoma klortsma Not available 09/21/2024 11:56:41 Mother Cataract klortsma Not available 09/21/2024 11:58:01 Unspecified Relation Bipolar disorder someon e on father s side klortsma Not available 09/21/2024 11:57:35 Unspecified Relation Diabetes mellitus everyo ne on mother s side klortsma Not available 09/21/2024 11:54:52 Unspecified Relation Depressive disorder everyo ne on mother s side klortsma Not available 09/21/2024 11:55:25 Unspecified Relation Malignant neoplasm of breast great grandm other klortsma Not available 08/13/2024 11:49:29 Unspecified Relation Malignant neoplasm of prostate grandf ather klortsma Not available 08/13/2024 11:49:54 Maternal Grandfather Harmful pattern of use of alcohol klortsma Not available 2024 11:55:38 Maternal Grandfather Parkinson's disease klortsma Not available 2024 11:56:36 Maternal Grandmother Cerebrovascu lar accident klortsma Not available 11:55:53 Maternal Grandmother Heart disease klortsma Not available 2024 11:55:02 Sister Cataract klortsma Not available 08/13/2024 11:48:50 Brother Harmful pattern of use of alcohol X2 klortsma Not available 2024 11:55:46 Medical History Condition Response Coronary Artery Disease N Other Y High Blood Pressure Y Atrial Fibrillation N Thyroid Problems Y Kidney or Bladder Problems N GI Problems Y Depression Y COPD N Blood Clots N Have you had a mammogram in the last yea r? Y Skin Problems Y Eating Disorder N Anemia Y Heart Attack ([place]) N Anxiety Disorder Y Diabetes Y Muscle, Joint, or Bone Problems Y Arthritis Y Seizures/Epilepsy Y Have you had a colonoscopy in the last 1 0 years? Y Acid Reflux (GERD) N Cancer Y Stroke Y Asthma N Allergies N Have you had a PSA blood test in the las t year? N Substance Abuse N High Cholesterol Y Hepatitis N Liver Disease Y Schizophrenia N Headaches Y Heart Failure N Osteoporosis N Gynecological History Statement/Question Response Date of Last Mammogram On BCP's at Conception? Y Menses Monthly N Date of Last Pap Smear Age at Menarche 10 Current Control Method None Age at First Child 20 Obstetrics History GPAL:G 1 P 1 0 0 1 Type Value Full Term 1 Living 1 Total 1 Past Encounters Encounter ID Performer Location Encounter Start Date Encounter Closed Date Diagnosis/Indication Diagnosis SNOMED-CT Code Diagnosis ICD10 Code Diagnosis IMO Codes Diagnosis Note [id number] Bruce Hernandez MD [place] [facility] IM [address] [facility] [address] [place] [phone] 03/24/2025 11:19:43 03/28/2025 10:24:07 Obese class II 8974574505 94451 E66.812 E66.3 6330579633 HIV screen ing declined 6267856697 23729 Z53.20 1753846455 Influenza vaccination declined 428437354 Z28.21 30147546 Counseling 481932290 Z71 .85 79900122 Shingrix series of two was recommende d. Osteoporosis 39545378 M8 1.8 Benign ess ential hypertension 1120000 I10 3379 Dyslipidemia 881632072 E 78.5 638786 Screening mammography 24 355711 Z12.31 95908688 UTD--done in September 2024 Screening for malignant neoplasm of colon 093452880 Z12.11 934675 colonoscop y done in April 2023--it was negative Injury of finger of left hand 9290388268 8412849 S69.92XS 94938151 Chronic back pain 517272 002 M54.89 G89.29 [id number] Health Concerns Section Related Observation LastModified by Organization Detai ls LastModified Time None Recorded Concern Status LastModified by Organization Details LastModified Time None Recorded Payers Encounter Date Sequence Insurance Name Policy Number Policy Greer Covered Member ID Greer Member ID Guarantor Name 03/24/2025 1 [facility] (MEDICARE REPLACEMENT/AD VANTAGE - PPO) [id number] Dianna Reynoso [id number] Dianna Reynoso 03/24/2025 2 [place] WHEN MEDICARE OR MEDICARE REPLACEMENT PRIMARY) Dianna [place] [id number] Dianna Reynoso Notes Date Note Type Note Provider Name and Address Organization Details Recorded Time 03/24/2025 text/html Regular checkup. Bruce Hernandez MD Attn: [employer],[address] [place], [address], [facility] 03/25/2025 13:47:51 OBGyn Episode No OBEpisode recorded.
--- OUTSIDE RECORDS SUMMARY | 2025-05-02 12:23 | XMS_ITS | Data Portability ---
Author Organization [facility] LEIPrashant Address [address] [facility] [facility] / [place] [address] Assessment Encounter Date Assessment Date Assessment LastModified by Organization Details LastModified Time 09/21/2024 09/21/2024 Pt sees a [employer] provider. Pt is on disability for fibromyalgia. [email or web address] Not available 09/23/2024 07:20:35 03/24/2025 03/24/2025 Decrease metoprolol to 1/2 tablet po HS due to decreased BP. Pt sees an eye doctor. [email or web address] Not available 03/25/2025 13:46:57 Plan of Treatment Reminders Order Date Submit Date Provider Last Modified By Organization Details Last Modified Time Details Appointments None recorded. Lab None recorded. Referral rheumatol ogist referral 2024 025 [email or web address] Deepak Sousa MD, [address] [address] [facility], [address], [place], [address], 22:21:06 general surgeon referral - pt would like this removed 2024 025 ROHIT Keane MD, [address] [place] [address], [place], [address], 12:43:16 Procedures None recorded. Surgeries None recorded. Imaging XR, thoracic spine, 3 view 2024 025 ROHIT Schmitz Scheduling, [address] [place], [address], 19:57:53 XR, cervical spine, 2 or 3 view 2024 leonor Davila [facility], [address] , [place], [address], 5 11:54:30 Medication Orders alendrona te 70 mg tablet 2024 [facility][id number], [address], [place], [place], [id number], 5 12:23:17 rosuvasta tin 10 mg tablet 2024 [facility] #96870, [address], [place], [place], [id number], 5 12:26:14 metoprolo l succinate ER 25 mg tablet,ex tended release 24 hr 2024 [facility] #[id number], [address], [place], [place], [id number], 5 12:23:17 cyclobenz aprine 10 mg tablet 2024 [facility] #68711, [address], [place], [place], [id number], 5 12:36:48 Patient TargetsNo targets recorded. Patient Instructions Encounter Date Encounter Id Patient Instructions Last Modified By Organization Details Last Modified Time 09/21/2024 [id number] learning about t ype 2 diabetes [email or web address] Not available 09/21/2024 12:32:16 type 2 diabetes: care instructions [email or web address] Not available 09/21/2024 12:32:16 gastroesophageal reflux disease (GERD): care instructions [email or web address] Not available 09/21/2024 12:33:51 A healthy lifest yle: care instructions [email or web address] Not available 09/21/2024 12:27:05 seasonal allergi es: care instructions [email or web address] Not available 09/21/2024 12:32:16 hypothyroidism: care instructions Not available 09/21/2024 12:32:16 03/24/2025 [id number] physical therapy* ATHENAFAX Not availab le 04/01/2025 11:55:56 mammogram: about this test [email or web address] Not available 03/24/2025 12:29:05 A healthy lifest yle: care instructions [email or web address] Not available 03/24/2025 12:20:16 high blood press ure: care instructions [email or web address] Not available 03/24/2025 12:23:11 learning about h igh blood pressure [email or web address] Not available 03/24/2025 12:23:11 Reason for Referral Retail Pharmacist 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, Encounter Date: 09/21/2024 General Surgeon Referral for Device in situ pt would like this removed Referring Physician: Bruce Hernandez [facility], Encounter Date: 09/21/2024 Results Created Date Observation Date Name Description Value Unit Range Abnormal Flag Note LastModifiedBy Organization Detail LastModifiedTime 10/22/19 25 10/21/2024 Hemog lobin A1c/H emogl obin. total in Blood hemoglobin A1C, POC 7.8 % low: 4%high : 5.6% abnormal Not Available Not Available 10/26/2024 12:37:45 10/22/19 25 10/21/2024 Hemog lobin A1c/H emogl obin. total in Blood interpretati on and review of laboratory results Abnorm al Not Available Not Available 12:37:45 01/22/20 25 01/21/2025 HbA1c (hemo globi n A1c), blood hemoglobin A1C, POC 8 % low: 4%high : 5.6% abnormal Not Available Not Available 03/24/2025 11:20:23 01/22/20 25 01/21/2025 HbA1c (hemo globi n A1c), blood lab interpretati on Abnorm al Not Available Not Available 11:20:23 04/25/20 25 04/25/2025 HbA1c (hemo globi n A1c), blood hemoglobin A1C, POC 8.5 % low: 4%high : 5.6% abnormal Not Available Not Available 04/26/2025 14:00:49 04/25/20 25 04/25/2025 HbA1c (hemo globi n A1c), blood lab interpretati on Abnorm al Not Available Not Available 14:00:49 12/20/1912/19/2024 XR, hand, 3 or more view No observ ation record ed. [email or web address] [address] [place], [address], 12/23/2024 11:37:02 03/11/2003/11/2025 US, breas t, unila teral No observ ation record ed. [address] Jerrica Wray, [address], [place], [address], 03/11/2025 12:58:04 03/11/2003/11/2025 MAMMO , diagn ostic , unila teral No observ ation record ed. [address] Jerrica Wray, [address], [place], [address], 03/11/2025 12:58:46 03/25/2003/25/2025 XR, thora cic spine , 3 view No observ ation record ed. [address] [place], [address], 04/04/2025 11:22:45 03/25/20 25 03/25/2025 XR, thora cic spine , 3 view No observ ation record ed. [address] [place], [address], 04/04/2025 11:22:46 Result Notes None recorded. 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 Procedures Surgical History Date Name Laterality Status Provider Name and Address Organization Details Recorded Time 12/13/19 Other completed Dianna Patel MA CT Tono [facility] 03/24/2025 11:34:45 11/23/19 25 removal of device completed BETY Sung [facility] 03/24/2025 11:33:52 09/10/19 19 core needle biopsy of breast completed Dianna Patel MA CT Tono [facility] 08/13/2024 11:42:42 Cholecystectomy completed Dianna Patel MA [facility] 08/13/2024 11:40:43 cryosurgery of lesion of cervix completed Dianna Patel MA [facility] 08/13/2024 11:41:08 extraction of wisdom tooth completed Dianna Patel MA [facility] 08/13/2024 11:41:20 cataract surgery completed Dianna Patel MA [facility] 08/13/2024 11:41:31 colonoscopy completed Dianna Patel MA [facility] 08/13/2024 11:41:54 implantation of venous access port completed Dianna Patel MA [facility] 08/13/2024 11:42:56 Imaging Results None recorded. Procedure Notes None recorded. Medical Equipment None Reported. Allergies Allergen ID Allergen Name Allergen Category Reaction Reaction Severity Criticality Documentation Date Start Date Code Code System Note Provider Name and Address Organization Details Recorded Time 487931 Substance with sulfonami de structure and antibacte rial mechanism of action (substanc e) medicatio n Not available Not available Not available 09/21/2024 95261 8003 SNOMED BETY Sung [facility] 11:41:57 320922 latex environme nt,medica tion Not available Not available Not available 09/21/2024 83060 91 RxNorm Dianna SadeiraBETY null, [place] - [facility] 5 11:42:02 904129 lithium Not available Not available Not available Not available 09/21/2024 6448 RxNorm Dianna Patel BETY null, [place] - [facility] 5 11:42:06 671971 bacitraci n / neomycin / polymyxin B medicatio n Not available Not available Not available 09/21/2024 72107 9 RxNorm cream or ointm ent Dianna Patel BETY null, [place] - [facility] 5 11:42:45 487027 polymyxin B medicatio n Not available Not available Not available 03/24/20252024 8536 RxNorm Not Available [facility] - [employer] - prod 5 11:20:21 072425 neomycin sulfate medicatio n Not available Not available Not available 03/24/20252024 7300 RxNorm Not Available [facility] - [employer] - prod 5 11:20:21 516459 bacitraci n zinc medicatio n Not available Not available Not available 03/24/20252024 85573 RxNorm Not Available [employer] - External Data [employer] - prod 5 11:20:21 675564 bacitraci n medicatio n Not available Not available Not available 03/24/20252024 1291 RxNorm Not Available [employer] - [employer] - prod 5 11:20:21 454598 gramicidi n medicatio n Not available Not available Not available 03/24/2025 5011 RxNorm Not Available [employer] - External Data [employer] - prod 5 11:20:24 724767 neomycin medicatio n Not available Not available Not available 03/24/2025 7299 RxNorm Not Available [employer] - prod 5 11:20:24 920289 bacitraci n / neomycin / polymyxin B medicatio n Not available Not available [facility] 03/24/20252024 23641 9 RxNorm bacit racin / neomy diana / polym yxin B unrec ogniz ed react ion (text : Theodore ers, code: [id number]) (from [facility]) Not Available [facility] - External Data Service - prod 11:20:24 310951 pramoxine medicatio n Not available Not available Not available 03/24/2025 57159 RxNorm Not Available [facility] External Data Service - prod 11:20:24 307144 sulfanila mide medicatio n Not available Not available Not available 03/24/2025 92229 RxNorm Not Available [facility] - External Data Service - [facility] 11:20:24 Medications Name Sig Start Date Stop [...] mcg tablet TAKE 1 TABLET BY MOUTH HAY SORTER BEFORE BREAKFAS T active Not Available Not [...] Not Available No t Available Dexcom G7 Training Analyst active Dr Edmondson do Not Available Not Available Not Available Dexcom G7 Sensor active Dr Edmondson do Not Available Not Available Not Available Vitals Date Recorded Body height Body mass index (BMI) Body weight Respiratory rate Body temperature Oxygen saturation Heart rate Systolic And Diastolic Provider Name and Address Organization Details Last Updated DateTime 149.86 cm 33.4 kg/m2 50313.7 9 g 16 /min 98 [degF] 97 % 88 /min 131/83 mm[Hg] Dianna Patel MA [facility] 12:09:03 Date Recorded Body height Body mass index (BMI) Body weight Respiratory rate Body temperature Oxygen saturation Heart rate Systolic And Diastolic Provider Name and Address Organization Details Last Updated DateTime 149.86 cm 35.4 kg/m2 40195.0 6 g 16 /min 97.8 [degF] 97 % 79 /min 116/76 mm[Hg] Dianna Patel MA [facility] 11:38:29 Social History Question Answer Notes LastModified by Organizat ion Details LastModified Time Tobacco Smoking Status Never Smoker Dianna Patel MA [facility], [facility] 03/24/2025 11:31:59 Do You Have An Advance [...] anxious, or unable to sleep at night)? [id number] Information not available 03/24/2025 Family History Relationship [...] Eating Disorder N Anemia Y Heart Attack ([place]) N Anxiety Disorder Y Diabetes Y Muscle, Joint, or Bone Problems Y Arthritis Y Seizures/Epilepsy Y Have you had a colonoscopy in the last 1 0 years? Y Acid Reflux (GERD) N Cancer Y Stroke Y Asthma N Allergies N Have you had a PSA blood test in the t year? 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 Hedrick Mycosis 9360974 B49 78550 Gastroesop hageal reflux disease 594074277 K21.9 58117552 Dyslipidemia 630705833 E 78.5 977190 Screening for malignant neoplasm of colon 526557795 Z12.11 233611 colonoscop y done in April 2023--it was negative Spasm 29493743 M62.838 76281 Benign muc ous membrane pemphigoid 19527227 L12.1 498 Device in situ 845480370 Z95.828 38723892 [id number] MD [place] [address] [place] [address] 03/24/2025 11:19:43 03/28/2025 10:24:07 Obese class II 4009257427 28808 E66.812 E66.3 8583287612 HIV screen ing declined 8424948841 88401 Z53.20 3164818551 Influenza vaccination declined 677920407 Z28.21 37484108 Counseling 264198690 Z71 .85 76747737 Shingrix series of two was recommende d. Osteoporosis 39934541 M8 1.8 Benign ess ential hypertension 5018454 I10 3379 Dyslipidemia 782430443 E 78.5 840165 Screening mammography 24 789162 Z12.31 30907494 UTD--done in September 2024 Screening for malignant neoplasm of colon 627618774 Z12.11 254551 colonoscop y done in April 2023--it was negative Injury of finger of left hand 7920421580 8130009 S69.92XS 55031534 Chronic back pain 122288 002 M54.89 G89.29 19377569 Health Concerns Section Related Observation LastModified by Organization Detai ls LastModified Time None Recorded Concern Status LastModified by Organization Details LastModified Time None Recorded Advance Directives Directive N: Payers Insurance Date Sequence Insurance Name Policy Number Policy Greer Covered Member ID Greer Member ID Guarantor Name 03/25/2025 1 [facility] (MEDICARE REPLACEMENT/AD VANTAGE - PPO) [id number] Dianna Reynoso [id number] Dianna Reynoso 01/13/2025 2 [place] [facility] PUBLIC AID Dianna Reynoso [id number] Dianna Reynoso 10/14/2024 1 [place] Dianna Reynoso [id number] Dianna Reynoso 03/25/2025 2 [place] WHEN MEDICARE OR MEDICARE REPLACEMENT PRIMARY) Dianna Reynoso [id number] Dianna Reynoso 03/21/2025 [place] [facility] Dianna Reynoso [id number] Dianna Reynoso 10/14/2024 1 [facility] (MEDICARE REPLACEMENT/AD VANTAGE - PPO) [id number] Dianna Reynoso [id number] Dianna Reynoso Notes Date Note Type Note Provider Name and Address Organization Details Recorded Time 09/21/2024 text/html ROS as noted in the HPI Pt presents for the first time, moving back to the area from [place]. Bruce Hernandez MD Attn: Accounting,[address] [facility], [place], [address], [facility] 10/26/2024 17:27:18 03/24/2025 text/html Regular checkup. Bruce Hernandez MD Attn: Accounting,[address] [facility], [place], [address], [facility] 03/25/2025 13:47:51 OBGyn Episode Ob Episode Information Episode Created Date Number of Fetuses Patient Bloodtype Patient rh Status Prepregnancy Weight lbs Domestic Partner Domestic Partner Phone Father Name Stretch Box Tender Status 09/22/19 25 1 CLOSED Fetus Data First Name Last Name Admitted to NICU Weight (g) Sex Living Outcome Pediatric Complications Fetus ID Race Codes Race Delivery Type [id number] Danny Calculation Initial Danny Date Initial Exam Date Initial Exam Provider Initial Ultrasound Date Last Menstrual Period Date Ultra Sound Weeks Gestation 0 Eighteen To Twenty Week Danny Update Ultra Sound Date Fundal Height At Umbil Quickening Date Ultra Sound Latest Weeks Gestation Final Danny Confirmed By Final Danny Confirmed Date Final Danny Date Ultra Sound Latest Days Gestation 0 0 Menstrual History Last Menstrual Date Menses Monthly On Bcp Conception Prior Menses Frequency Hcg Plus Date Menarche Onset Age Delivery Information Delivery Date Delivery Type Labor Anesthesia Weeks Gestation Incision Type Labor Labor Length Hrs Delivered By Post Complications Tubal Sterilization Discharge Date Comments 6 Discharge Information Feeding Method Contraceptive Method Maternal HG B and HCT Levels
== END 2025-05-02 11:13 | disposition home or self-care (01) ==
PROVIDERS: Emergency Provider Nurse Practitioner Family; PCP Family Medicine
DX: R21 Rash and other nonspecific skin eruption (principal); E11.9 Type 2 diabetes mellitus without complications; Z79.84 Long term (current) use of oral hypoglycemic drugs; Z79.85 Long-term (current) use of injectable non-insulin antidiabetic drugs; M79.7 Fibromyalgia; F32.A Depression, unspecified
CPT/HCPCS: 99213; G0463